=== PATIENT | male | born 1950 | race Caucasian/White ===

== ENCOUNTER 2019-12-05 06:49 | Outpatient (NON) | payer MEDICARE, OTHER, SELFPAY ==
[2019-12-05 19:12] LABS: SARS-CoV-2 RNA PCR Negative
== END 2019-12-05 06:50 ==
DX: R68.89 Other general symptoms and signs (principal); Z20.828 Contact with and (suspected) exposure to other viral communicable diseases
CPT/HCPCS: 87635; C9803; U0003

== ENCOUNTER 2020-05-21 07:14 | Emergency (ER) | payer BC, SELFPAY ==
--- NOTE | ~2020-05-21 | CT_ITS ---
EXAMINATION: CT cervical spine wo con DATE: 05/21/2020 07:37 INDICATION: Fall with head injury. TECHNIQUE: Computed tomography (CT) of the cervical spine was performed without intravenous contrast. Automated exposure control and iterative reconstruction technique were employed. The dose-length pro duct was 438.89 mGy-cm. COMPARISON: None FINDINGS: Straightening of the normal cervical lordosis. No spondylolisthesis or facet subluxation. Vertebral b blanche heights are normal. No fracture. Mild disc height loss at C3-C4 through C6-C7. Multilevel mild to moderate bilateral cervical facet osteoarthritis. No significant central canal or neural foraminal s tenosis. Cervical soft tissues are unremarkable. Mild emphysema. IMPRESSION: 1. Mild cervical spondylosis. No acute osseous abnormality. Reviewed, dictated and finalized at location A. [facility]
--- NOTE | ~2020-05-21 | CT_ITS ---
EXAMINATION: CT brain wo con DATE: 05/21/2020 07:37 INDICATION: Fall with head injury and laceration to the back of the head. TECHNIQUE: Computed tomography (CT) of the head was performed without intravenous contrast. Sagittal and coronal reconstructions were performed. The mA was adjusted according to patient size. Iterative reconstruction technique was employed. The dose-length product was 605.33 mGy-cm. COMPARISON: None FINDINGS: No fracture. No acute intracranial hemorrhage, acute infarction or abnormal extra axial fluid collect ion. There is mild scattered white matter hypoattenuation consistent with chronic small vessel ischem ic disease. Symmetric prominence of the sulci consistent with mild to moderate diffuse cerebral volum e loss. Ventricles are normal and symmetric. No mass/mass effect. Changes of bilateral intraocular le ns replacement. The orbits and mastoid air cells are normal. Opacification of the left ethmoid air ce ll. IMPRESSION: 1. No fracture or acute intracranial process. 2. Age-related changes including mild to moderate diffuse volume loss and mild scattered white matter hypoattenuation consistent with chronic small vessel ischemic disease. Reviewed, dictated and finalized at location A. BREAKER IMPRESSION: 1. No fracture or acute intracranial process. 2. Age-related changes including mild to moderate diffuse volume loss and mild scattered white matter hypoattenuation consistent with chronic small vessel isc hemic disease.
[2020-05-21 07:20] VITALS: BP 165/91; PULSE 68; RESP 18; TEMP 36.3; O2SAT 96
--- NOTE | 2020-05-21 07:23 | ED.FALL ---
HPI - Fall General Chief Complaint: Fall Stated Complaint: FALL/HI Time Seen by Provider: 05/21/20 07:22 Source: patient and EMS Mode of arrival: EMS Limitations: no limitations History of Present Illness HPI Narrative: Patient is a 69-year-old male with a history of multiple sclerosis who presents today for evaluation following a ground-level fall. Patient states he tripped over his feet in the bathroom while passing through a threshold in his bathroom, causing him to lose his balance and hit the back of his head. Patient denies loss of consciousness. Patient states he typically requires some help with ambulation due to his baseline MS. He denies any severe headache, vision changes, nausea, vomiting. No prodromal symptoms prior to the fall. He denies any current chest pain, shortness of breath. Patient denies any current weakness or numbness. Patient transported from [facility] via EMS. GCS 15. He denies any extremity pain. Related Data Home Medications Medication Instructions Recorded Confirmed atorvastatin 05/21/20 05/21/20 baclofen mg 05/21/20 fluticasone propionate INTRANASAL 05/21/20 ibuprofen 05/21/20 loperamide 05/21/20 losartan 05/21/20 oxybutynin chloride 05/21/20 Allergies Allergy/AdvReac Type Severity Reaction Status Date / Time carbamazepine AdvReac Unknown Verified 05/21/20 07:38 lisinopril AdvReac Unknown Verified 05/21/20 07:38 trazodone AdvReac Unknown Verified 05/21/20 07:38 Review of Systems Review of Systems: Narrative: CONSTITUTIONAL: Denies fever EYES: Denies visual changes ENT: Denies rhinorrhea, congestion CARDIOVASCULAR: Denies chest pain, palpitations, or edema. RESPIRATORY: Denies cough or dyspnea. GASTROINTESTINAL: Denies abdominal pain, nausea, vomiting SKIN: Reports laceration to scalp MUSCULOSKELETAL: Denies back pain, joint pain, or neck pain NEUROLOGIC: Denies headache, numbness, or weakness. PMFSH Past Medical History Medical History (Updated 05/21/20 @ 08:00 by Jeane Salinas MD) Multiple sclerosis Exam Narrative: Exam Narrative: Nursing note and vitals reviewed. CONSTITUTIONAL: The patient appears well-developed and well-nourished. No distress. HEAD: Normocephalic, 2 cm superficial scalp laceration, no galea visualized, no active bleeding EYES: PERRL, EOMI, normal conjunctiva, anicteric EARS: External ears clear bilaterally, no hemotympanum MOUTH: OP clear, no erythema, exudates NECK: midline trachea, supple, FROM. No midline Cervical spinal tenderness. No step-offs or deformities. CARDIOVASCULAR: Normal rate, regular rhythm, normal heart sounds and intact distal pulses. No murmurs, rubs, gallops. PULMONARY: Effort normal and breath sounds normal. No respiratory distress. The patient has no wheezes, rales, ronchi. No chest wall tenderness, crepitus or ecchymoses. ABDOMINAL: Soft. Nontender, nondistended. No palpable masses EXTREMITIES:: moving all extremities symmetrically. -RUE: No deformity. Normal ROM at shoulder, elbow, wrist, and hand. Sensation intact M/U/R. Pulse 2+. -LUE: No deformity. Normal ROM at shoulder, elbow, wrist, and hand., Sensation intact M/U/R. Pulse 2+ -RLE: No deformity. Normal ROM at hip, knee, ankle. Sensation intact distally. -LLE: No deformity. Normal ROM at hip, knee, ankle. Sensation intact distally. Mild pitting edema 1+ to the mid ibarra. NEUROLOGY: The patient is alert and oriented to person, place, and time. CN II-XII Course Vital Signs Vital signs: Vital Signs Temperature 36.3 C L 05/21/20 07:20 Pulse Rate 68 05/21/20 07:20 Respiratory Rate 18 05/21/20 07:20 Blood Pressure 165/91 H 05/21/20 07:20 Pulse Oximetry 96 05/21/20 07:20 Temperature 36.3 C L 05/21/20 07:20 Pulse Rate 68 05/21/20 07:20 Respiratory Rate 18 05/21/20 07:20 Blood Pressure 165/91 H 05/21/20 07:20 Pulse Oximetry 96 05/21/20 07:20 Procedures Laceration Laceration 1: Date: 05/21/20 Time
[2020-05-21] MEDS: TETANUS,DIPHTHERIA,AC PERTUSSIS ADULT (0.5 ML) BOOSTRIX IM (07:55)
[2020-05-21 08:33] VITALS: BP 112/84; PULSE 69; RESP 16; O2SAT 98
== END 2020-05-21 08:35 ==
PROVIDERS: Emergency Provider Emergency Medicine
DX: S01.01XA Laceration without foreign body of scalp, initial encounter (principal); G35 Multiple sclerosis; Z23 Encounter for immunization; M47.812 Spondylosis without myelopathy or radiculopathy, cervical region; W01.0XXA Fall on same level from slipping, tripping and stumbling without subsequent striking against object, initial encounter
CPT/HCPCS: 12001; 70450; 72125; 90471; 90715; 99284

== ENCOUNTER 2020-07-28 06:34 | Outpatient (CLI) | payer BC, SELFPAY ==
--- NOTE | 2020-07-28 | ECHO_ITS ---
Patient Info Name: William Rivers Age: 69 years : 1950 Gender: Male Ht: 70 in Wt: 238 lbs BSA: 2.35 m2 BP: 150 / 87 mmHg Heart Rhythm: Sinus Rhythm Technical Quality: Fair Exam Date: 07/28/2020 7:05 AM Exam Location: [facility] Pulmonary Patient Status: Outpatient Admit Date: 07/28/2020 Staff Ordering Physician: Marry Alvarado MD Corporate Safety Director: Ellen Baez RDCS Attending Provider: Marry Alvarado MD Referring Physician: Jenny ARCOS; Exam Type: CA echo doppler color flow Study Info Indications R60.9 - Edema, unspecified Complete two-dimensional, color flow and Doppler transthoracic echocardiogram is performed. Summary 1. Complete two-dimensional, color flow and Doppler transthoracic echocardiogram is performed. 2. Left ventricular chamber dimension is normal. 3. Left ventricular systolic function is normal, estimated at >70%. 4. There is mildly increased left ventricular wall thickness. 5. The left ventricular diastolic function is normal. 6. Left atrial chamber dimension is mildly enlarged. 7. There is mild mitral valve regurgitation. 8. There is mild tricuspid valve regurgitation. Left Ventricle Left ventricular chamber dimension is normal. Left ventricular systolic function is normal, estimated at >70%. There is mildly increased left ventricular wall thickness. The left ventricular diastolic function is normal. Right Ventricle Right ventricular chamber dimension is normal. Right ventricular systolic function is normal. Left Atria Left atrial chamber dimension is mildly enlarged. Right Atria Right atrial chamber dimension is normal. Atrial Septum Intact interatrial septum visualized by color flow imaging. Aortic Valve The aortic valve is trileaflet. There is mild aortic valve sclerosis. There is no aortic valve stenosis. There is trace aortic valve regurgitation. Pulmonic Valve The pulmonic valve is normal. There is no pulmonic valve stenosis. There is trace pulmonic regurgitation. Mitral Valve The mitral valve has normal leaflets. There is no mitral valve stenosis. There is mild mitral valve regurgitation. Tricuspid Valve The tricuspid valve leaflets are normal. There is no significant tricuspid valve stenosis. There is mild tricuspid valve regurgitation. Pericardium/Pleural The pericardium appears normal. There is no pericardial effusion. Inferior Vena Cava Normal inferior vena cava with <50% collapse upon inspiration consistent with elevated right atrial pressure, 10 mmHg. Aorta The aortic root size at the sinus of Valsalva is normal. The prox ascending aorta size is normal. Left Ventricular Outflow Tract Name Value Normal LVOT 2D LVOT Diameter 2.1 cm LVOT Doppler LVOT Peak Gradient 6 mmHg LVOT Mean Gradient 3 mmHg LVOT VTI 25 cm LVOT VTI/AV VTI Ratio 0.9 LVOT Stroke Volume 85 ml LVOT CO 6.5 l/min LVOT CI 2.8 l
== END 2020-07-28 06:35 | disposition home or self-care (01) ==
DX: R60.9 Edema, unspecified (principal); I08.1 Rheumatic disorders of both mitral and tricuspid valves
CPT/HCPCS: 93306

== ENCOUNTER 2021-03-10 10:00 | Emergency (ER) | payer BC, SELFPAY ==
--- NOTE | 2021-03-10 10:16 | WPDEDEXPGENP ---
HPI - General Ped General Chief complaint: Extremity Problem,Nontraumatic Stated complaint: redness/swelling sarah legs Source: patient Mode of arrival: ambulatory Limitations: no limitations Nursing Documentation: reviewed/agree History of Present Illness HPI narrative: Patient is an 70-year-old male who presents to the [facility] via POV for evaluation of bilateral leg swelling that began approximately 1 week ago. He is accompanied by brother and [id number]. He also reports erythema and tenderness to bilateral lower legs. Denies taking OTC meds for symptoms. Nothing improves or worsen symptoms. Of note, patient has lymphedema. He is cared for by a home health RN who recommended him go to an urgent care due to worsening of symptoms. Related Data Home Medications Medication Instructions Recorded Confirmed atorvastatin 05/21/20 05/21/20 baclofen mg 05/21/20 fluticasone propionate INTRANASAL 05/21/20 ibuprofen 05/21/20 loperamide 05/21/20 losartan 05/21/20 oxybutynin chloride 05/21/20 Allergies Allergy/AdvReac Type Severity Reaction Status Date / Time carbamazepine AdvReac Unknown Verified 03/10/21 10:38 lisinopril AdvReac Unknown Verified 03/10/21 10:38 trazodone AdvReac Unknown Verified 03/10/21 10:38 Pediatric Review of Systems Review of Systems: Denies injury. Pertinent negatives fever, chills, sweats, malaise, poor p.o. intake, change in appetite, headache, LOC, dizziness, streaking, drainage, numbness, tingling, loss of sensation, foreign body sensation, deformity, sob, chest pain, and heart palpitations/murmurs. [facility] Past Medical History Medical History (Updated 03/10/21 @ 10:41 by Herminia Gabriel, SCHEDULE CLERK, ) Hypertension Lymphedema Multiple sclerosis Comments I have reviewed and agree with the patient's past medical, surgical, social, and family hx as documented by the RN. There is no relevant family history pertinent to the presenting complaint. Pediatric Exam Narrative: Physical exam: GENERAL: Well-appearing, well-nourished, and in no acute distress. HEAD: Normocephalic, atraumatic. No facial swelling appreciated. EYES: PERRLA and EOMI. No evidence of erythema, swelling, or drainage. ENT: Nares clear, no rhinorrhea or epistaxis.Mucous membranes moist and pink. Uvula is midline without erythema and swelling. No evidence of obstruction, petechial rash, cobblestoning, lesions, ulcers, erythema, swelling, exudates, peritonsillar abscess, tenting, or drooling. Breath odor and voice normal. NECK: Supple. No Lymphadenopathy or nuchal rigidity appreciated. CHEST: Bilateral lung luna are clear to auscultation. No respiratory distress. No evidence of cough or pleuritic cp upon examination. HEART: Regular rate and rhythm. No murmur, gallop, or rub heard. EXTREMITIES: Normal range of motion. Severe lymphedema noted to bilateral lower legs. SKIN: Warm, dry. Severe cellulitis noted to bilateral lower extremities. No evidence of abscess, streaking, induration, abrasions/lacerations, petechiae, hematoma, contusion, drainage, or bleeding. NEURO: No focal deficits. Alert and oriented x3. Course Course Emergency Course: The patient/guardian displays adequate decision making capability and despite a detailed discussion of alternatives, benefits, risks, and consequences refuses higher level of care to ER via EMS. Medical Decision Making Differential Diagnosis Differential Diagnosis: Contact/allergic dermatitis, atopic dermatitis, psoriasis, cellulitis, tinea infection, parasite infection, shingles Medical Records Medical records reviewed: Yes I reviewed the external patient's medical records. Vital Signs Vital Signs: Due to an elevated blood pressure, I had a detailed discussion with the patient and/or guardian regarding the need for follow-up with their primary care provider within the next 3-4 days. Patient verbalized understanding and agreed. Critical Care Time Critical Care Time Marissa
[2021-03-10 10:18] VITALS: BP 142/64; PULSE 69; RESP 16; TEMP 36.9; O2SAT 95
== END 2021-03-10 10:35 | disposition left against medical advice (07) ==
PROVIDERS: Emergency Provider Nurse Practitioner Family
DX: L03.116 Cellulitis of left lower limb (principal); L03.115 Cellulitis of right lower limb; I10 Essential (primary) hypertension; G35 Multiple sclerosis; I89.0 Lymphedema, not elsewhere classified
CPT/HCPCS: 99212; G0463